=== PATIENT | female | born 1940 | race Caucasian/White ===

== ENCOUNTER → 2017-10-31 | Outpatient (CLI) | payer MEDICARE ==
[~2017-10-31] MED LIST: FLEC50TA3 PO; LEVO112T7 PO
== END | disposition home or self-care (01) ==
LOC: RAH 12:55
PROVIDERS: ATTEND Orthopaedic Surgery
DX: M75.101 Unspecified rotator cuff tear or rupture of right shoulder, not specified as traumatic (principal); M75.41 Impingement syndrome of right shoulder
CPT/HCPCS: 73221

== ENCOUNTER 2017-12-29 08:03 | Observation (INO) | payer MEDICARE ==
[2017-12-26 09:36] VITALS: BP 124/75
[2017-12-26 09:45] LABS: BASOPHILS % (AUTO) 1.2 % (0.0-5.0); EOSINOPHILS % (AUTO) 0.8 % (0.0-8.0); HEMATOCRIT 42.4 % (36-48); MEAN CORPUSCULAR HEMOGLOBIN 33.5 pg (27.0-33.0); MEAN CORPUSCULAR HGB CONC 34.3 g/dL (32.0-36.0); MEAN CORPUSCULAR VOLUME 97.7 fL (79-99); MONOCYTES % (AUTO) 12.2 % (3.0-13.0); NEUTROPHILS % (AUTO) 52.8 % (40.0-77.0); PLATELET COUNT (AUTO) 342 K/uL (130-400); RED BLOOD CELL COUNT(AUTO) 4.34 MIL/uL (4.00-5.50); RED CELL DISTRIBUTION WIDTH 13.7 % (11.0-15.5); WHITE BLOOD COUNT (AUTO) 4.1 K/uL (4.8-10.8)
[2017-12-26 09:56] LABS: CREATININE 0.6 mg/dL (0.5-1.5); POTASSIUM 4.5 mmol/L (3.5-5.1)
[2017-12-26 10:05] LABS: INR 1.03 (0.85-1.15); PARTIAL THROMBOPLASTIN TIME 28.1 SEC (26.3-35.5); PROTHROMBIN TIME 10.8 SEC (9.6-11.6)
[~2017-12-29] VITALS: Ht 167.6 cm; Wt 71.3 kg
[2017-12-29] VITALS (11 sets, daily range): BP systolic 113–138; BP diastolic 61–74
[2017-12-29] MEDS ORDERED: SODIUM CHLORIDE 0.9% 1000ML 1,000 ML IV ONE (09:03)
[2017-12-29] MEDS ORDERED: HEPARIN SODIUM 1000UNIT/ML 10ML VIAL ONE (09:21)
[2017-12-29] MEDS ORDERED: LIDOCAINE HCL 2% 20ML ONE (09:21)
[2017-12-29] MEDS ORDERED: ISOPROTERENOL HCL 0.2 MG/ML AMP/VIAL/BAG ONE (09:22)
[2017-12-29] MEDS ORDERED: FENTANYL CITRATE PF 50 MCG/1 ML 2ML VIAL ONE (11:07)
[2017-12-29] MEDS ORDERED: MEPERIDINE-PF 50 MG/ML SYG ONE (11:12)
[2017-12-29] MEDS ORDERED: MEPERIDINE-PF 25 MG/ML SYG ONE (11:57)
[2017-12-29] MEDS ORDERED: ASPIRIN 81 MG EC TAB PO SCH (14:17)
[2017-12-29] MEDS ORDERED: ACETAMINOPHEN 325 MG TAB PO PRN (22:45)
[2017-12-30 04:01] LABS: BASOPHILS % (AUTO) 0.7 % (0.0-5.0); EOSINOPHILS % (AUTO) 1.1 % (0.0-8.0); HEMATOCRIT 39.1 % (36-48); LYMPHOCYTES % (AUTO) 40.6 % (21.0-51.0); MEAN CORPUSCULAR HEMOGLOBIN 33.9 pg (27.0-33.0); MEAN CORPUSCULAR VOLUME 96.9 fL (79-99); MONOCYTES % (AUTO) 11.1 % (3.0-13.0); NEUTROPHILS % (AUTO) 46.5 % (40.0-77.0); PLATELET COUNT (AUTO) 303 K/uL (130-400); RED BLOOD CELL COUNT(AUTO) 4.04 MIL/uL (4.00-5.50); RED CELL DISTRIBUTION WIDTH 13.5 % (11.0-15.5)
[2017-12-30 04:08] LABS: CREATININE 0.6 mg/dL (0.5-1.5); POTASSIUM 4.8 mmol/L (3.5-5.1)
[2017-12-30 04:41] VITALS: BP 123/63
[2017-12-30] MEDS ORDERED: LEVOTHYROXINE 112 MCG TABLET PO SCH (06:30)
[2017-12-30 06:37] VITALS: BP 123/63
[2017-12-30] MEDS ORDERED: REGADENOSON 0.4 MG/5 ML PF SYG IVP SCH (07:15)
[2017-12-30 07:21] VITALS: BP 116/73
[2017-12-30] MEDS ORDERED: ASPIRIN 81 MG EC TAB PO SCH (09:00)
[2017-12-30] MEDS ORDERED: MAG HYDROX/AL HYDROX/SIMETH ES 30 ML SUSP UDCUP PO PRN (09:15)
[2017-12-30] MEDS ORDERED: ACETAMINOPHEN 325 MG TAB PO PRN ×2 (09:15)
[2017-12-30] MEDS ORDERED: LACTULOSE 20 GM/30 ML UDCUP PO PRN (09:15)
[2017-12-30] MEDS ORDERED: NITROGLYCERIN 0.4 MG SL TAB SL PRN (09:15)
[2017-12-30] MEDS ORDERED: GUAIFENESIN-DM 200/20 MG 10 ML PO PRN (09:15)
[2017-12-30] MEDS ORDERED: TRAMADOL HCL 50 MG TABLET PO PRN (09:15)
[2017-12-30] MEDS ORDERED: ONDANSETRON HCL 4 MG/2 ML VIAL IV PRN (09:15)
[2017-12-30 11:28] VITALS: BP 137/76
[2017-12-30 16:37] VITALS: BP 112/74
== END 2017-12-30 18:52 | disposition home or self-care (01) ==
LOC: DAH 08:03 → 2AH 08:04 → DAH 08:04
PROVIDERS: ADMIT Internal Medicine; ATTEND Internal Medicine
DX: I47.1 Supraventricular tachycardia (principal); E03.9 Hypothyroidism, unspecified; G89.29 Other chronic pain; Z88.5 Allergy status to narcotic agent; Z88.1 Allergy status to other antibiotic agents; Z98.51 Tubal ligation status; Z96.649 Presence of unspecified artificial hip joint; Z79.899 Other long term (current) drug therapy
CPT/HCPCS: 36415 ×2; 78452; 80048 ×2; 82948 ×2; 85025 ×2; 85610; 85730; 93005 ×2; 93017; 93613; 93621; 93623; 93653; A4649; A9500 ×2; C1730 ×4; C1732; C1894 ×5; G0378 ×35; J1644; J2175; J2785; J3010; J3490 ×2; J7030; 96374; 99152; 99153

== ENCOUNTER → 2023-10-26 | Outpatient (CLI) | payer MEDICARE ==
[~2023-10-26] MED LIST changes: -FLEC50TA3 PO
== END | disposition home or self-care (01) ==
LOC: RAH 10:00
PROVIDERS: ATTEND Internal Medicine Cardiovascular Disease
DX: I05.9 Rheumatic mitral valve disease, unspecified (principal); R94.31 Abnormal electrocardiogram [ECG] [EKG]; M19.90 Unspecified osteoarthritis, unspecified site
CPT/HCPCS: 93306

== ENCOUNTER → 2023-10-31 | Outpatient (CLI) | payer MEDICARE ==
[2023-10-31] MEDS: REGADENOSON 0.4 MG/5 ML PF SYG IVP SCH (11:02)
== END | disposition home or self-care (01) ==
LOC: RAH 08:29
PROVIDERS: ATTEND Internal Medicine Cardiovascular Disease
DX: R94.31 Abnormal electrocardiogram [ECG] [EKG] (principal)
CPT/HCPCS: 78452; 96374; 93017; J2785; A9500 ×2

== ENCOUNTER 2023-12-18 05:05 | Observation (INO) | payer MEDICARE ==
[2023-12-13 11:29] LABS: BASOPHILS # (AUTO) 0.05 K/uL (0.00-0.20); BASOPHILS % (AUTO) 1.6 % (0.0-5.0); EOSINOPHILS # (AUTO) 0.11 K/uL (0.00-0.70); EOSINOPHILS % (AUTO) 3.5 % (0.0-8.0); HEMATOCRIT 40.5 % (36-48); IMMATURE GRANULOCYTE ABSOLUTE 0.01 K/uL (0-1); LYMPHOCYTES # (AUTO) 1.2 K/uL (1.0-4.8); LYMPHOCYTES % (AUTO) 38.9 % (21.0-51.0); MEAN CORPUSCULAR HEMOGLOBIN 31.7 pg (27.0-33.0); MEAN CORPUSCULAR HGB CONC 32.8 g/dL (32.0-36.0); MEAN CORPUSCULAR VOLUME 96.4 fL (79-99); MONOCYTES # (AUTO) 0.4 K/uL (0.1-1.0); MONOCYTES % (AUTO) 11.4 % (3.0-13.0); NEUTROPHILS # (AUTO) 1.4 K/uL (1.8-7.7); NEUTROPHILS % (AUTO) 44.3 % (40.0-77.0); PLATELET COUNT (AUTO) 261 K/uL (130-400); RED CELL DISTRIBUTION WIDTH 13.5 % (11.0-15.5); WHITE BLOOD COUNT (AUTO) 3.2 K/uL (4.8-10.8)
[2023-12-13 11:38] LABS: CREATININE 0.6 mg/dL (0.5-1.0); POTASSIUM 4.6 mmol/L (3.5-5.1)
[2023-12-13 11:41] LABS: INR <= 0.93 (0.85-1.15)
[2023-12-13 12:31] VITALS: BP 137/82; PULSE 71; RESP 18
[2023-12-18] VITALS (27 sets, daily range): BP systolic 134–168; BP diastolic 64–90; PULSE 57–82; RESP 14–20; O2SAT 98–99
[~2023-12-18] VITALS: Ht 167.6 cm; Wt 72.1 kg
[~2023-12-18 05:05] MED LIST changes: +ACET-2743 PO; +FLUT15.845 NASAL; -LEVO112T7 PO; +LEVO5TAB13 PO; +LEVO75TA10 PO; +LIOT5TAB11 PO; +MECL-302 PO; +METH-812 PO; +[UNRECOGNIZED DRUG - OTHER] PO; +probiotic PO
[2023-12-18] MEDS: CEFAZOLIN SODIUM 2 GM VIAL ONE (05:29)
[2023-12-18] MEDS: LACTATED RINGERS 1000ML 1,000 ML IV ONE (05:30)
[2023-12-18] MEDS ORDERED: FENTANYL CITRATE PF 50 MCG/1 ML 2ML VIAL ONE (07:05)
[2023-12-18] MEDS ORDERED: PROPOFOL 1000 MG/100 ML 100 ML IV ONE (07:07)
[2023-12-18] MEDS ORDERED: MORPHINE PF 100MG/10ML AMP IV ONE (07:07)
[2023-12-18] MEDS: ACETAMINOPHEN 1,000 MG/100 ML VIAL IV ONE (07:08)
[2023-12-18] MEDS: FAMOTIDINE 20MG VIAL IV ONE (07:09)
[2023-12-18] MEDS ORDERED: ONDANSETRON 4MG INJ ONE (07:37)
[2023-12-18] MEDS ORDERED: DEXAMETHASONE SOD PHOSPHATE 10MG/ML 1ML VIAL ONE (07:37)
[2023-12-18] MEDS ORDERED: ROCURONIUM BROMIDE 10MG/1ML 5ML VL ONE (07:41)
[2023-12-18] MEDS ORDERED: LIDOCAINE PF 100MG/5ML (2%) SYRINGE 5ML ONE (07:41)
[2023-12-18] MEDS: TRANEXAMIC ACID 1000MG/10ML ONE ×2 (07:45→09:05)
[2023-12-18] MEDS: GENTAMICIN SULFATE 80 MG/2 ML VIAL ONE (08:07)
[2023-12-18] MEDS: CEFAZOLIN SODIUM 1 GM VIAL ONE (08:07)
[2023-12-18] MEDS: 0.9%NACL 48.45 ML, ROPIVACAINE 0.5% 49.25ML, EPINEPH 0.5MG KETOROLAC 30MG,CLONIDINE 80MCG IV PRN (08:07)
[2023-12-18] MEDS ORDERED: NEOSTIGMINE METHYLSULFATE 1MG/ML IV ONE (08:37)
[2023-12-18] MEDS ORDERED: GLYCOPYRROLATE 0.2 MG/ML 5 ML VIAL ONE (08:37)
[2023-12-18] MEDS: MEPERIDINE-PF 25 MG/ML SYG ONE (10:21)
[2023-12-18] MEDS ORDERED: BENZOCAINE/MENTH/CETYLPYRD CL 1 EACH LOZENGE MM PRN (11:30)
[2023-12-18] MEDS ORDERED: DIPHENOXYLATE HCL/ATROPINE 2.5/0.025 MG TAB PO PRN (11:30)
[2023-12-18] MEDS ORDERED: LACTULOSE 20 GM/30 ML UDCUP PO PRN (11:30)
[2023-12-18] MEDS ORDERED: ACETAMINOPHEN 325 MG TAB PO SCH (11:30)
[2023-12-18] MEDS ORDERED: HYDROMORPH /0.9% NACL/PF PCA 50 ML IV PRN (11:30)
[2023-12-18] MEDS ORDERED: ACETAMINOPHEN 325 MG TAB PO PRN (11:30)
[2023-12-18] MEDS ORDERED: DIPHENHYDRAMINE HCL 25 MG CAPSULE PO SCH (11:30)
[2023-12-18] MEDS ORDERED: CEFAZOLIN SODIUM 2 GM VIAL IVPB SCH (11:30)
[2023-12-18] MEDS ORDERED: DIPHENHYDRAMINE HCL 25 MG CAPSULE PO PRN (11:30)
[2023-12-18] MEDS: 0.9%NACL 1000ML 1,000 ML IV SCH (11:45)
[2023-12-18] MEDS: ONDANSETRON 4MG INJ IVP PRN (12:05)
[2023-12-18] MEDS ORDERED: MECLIZINE HCL 25 MG TABLET PO PRN (12:30)
[2023-12-18 14:36] LABS: ALBUMIN 3.8 g/dL (3.5-5.0); BILIRUBIN,DIRECT 0.1 mg/dL (0.0-0.3); BILIRUBIN,TOTAL 0.3 mg/dL (0.2-1.0); TOTAL PROTEIN, SERUM 6.8 g/dL (6.0-8.3)
[2023-12-18] MEDS: TRAMADOL HCL 50 MG TABLET PO PRN (14:57)
[2023-12-18] MEDS: MAG/ALUM/SIMETH 30 ML UDCUP PO PRN (15:00)
[2023-12-18] MEDS: CEFAZOLIN SODIUM 2 GM VIAL IVPB SCH (17:07)
[2023-12-18] MEDS: FLUTICASONE PROPIONATE 50MCG/SPRAY 16 GM BOTTLE EN SCH (20:37)
[2023-12-19 00:14] VITALS: BP 120/61; PULSE 66; RESP 17
[2023-12-19 04:07] LABS: BASOPHILS # (AUTO) 0.01 K/uL (0.00-0.20); BASOPHILS % (AUTO) 0.1 % (0.0-5.0); EOSINOPHILS # (AUTO) 0.01 K/uL (0.00-0.70); EOSINOPHILS % (AUTO) 0.1 % (0.0-8.0); HEMATOCRIT 32.8 % (36-48); IMMATURE GRANULOCYTE ABSOLUTE 0.05 K/uL (0-1); LYMPHOCYTES # (AUTO) 1.1 K/uL (1.0-4.8); LYMPHOCYTES % (AUTO) 10.3 % (21.0-51.0); MEAN CORPUSCULAR HEMOGLOBIN 32.4 pg (27.0-33.0); MEAN CORPUSCULAR HGB CONC 34.1 g/dL (32.0-36.0); MEAN CORPUSCULAR VOLUME 94.8 fL (79-99); MONOCYTES # (AUTO) 0.8 K/uL (0.1-1.0); MONOCYTES % (AUTO) 8.1 % (3.0-13.0); NEUTROPHILS # (AUTO) 8.4 K/uL (1.8-7.7); NEUTROPHILS % (AUTO) 80.9 % (40.0-77.0); PLATELET COUNT (AUTO) 211 K/uL (130-400); RED BLOOD CELL COUNT(AUTO) 3.46 MIL/uL (4.00-5.50); RED CELL DISTRIBUTION WIDTH 13.3 % (11.0-15.5); WHITE BLOOD COUNT (AUTO) 10.4 K/uL (4.8-10.8)
[2023-12-19 04:08] VITALS: BP 111/57; PULSE 61; RESP 17
[2023-12-19 04:20] LABS: CREATININE 0.7 mg/dL (0.5-1.0); POTASSIUM 3.8 mmol/L (3.5-5.1)
[2023-12-19 04:27] LABS: HEMOGLOBIN A1C 5.9 % (4.0-6.0)
[2023-12-19] MEDS: LEVOTHYROXINE 75 MCG TABLET PO SCH (05:54)
[2023-12-19] MEDS: (Liothyronine Sodium 5 MCG) PO SCH (05:58)
[2023-12-19 08:00] VITALS: BP 123/53; PULSE 68; RESP 16; O2SAT 99
[2023-12-19] MEDS: RIVAROXABAN 10 MG TABLET PO SCH (08:35)
[2023-12-19] MEDS: FLUTICASONE PROPIONATE 50MCG/SPRAY 16 GM BOTTLE EN SCH (08:35)
[2023-12-19 12:00] VITALS: BP 122/66; PULSE 73; RESP 16
[2023-12-19 16:00] VITALS: BP 117/58; PULSE 75; RESP 16
== END 2023-12-19 17:20 ==
LOC: DAH 05:05 → DAHIP 05:06 → 4BH 11:10
PROVIDERS: ADMIT Orthopaedic Surgery; ATTEND Orthopaedic Surgery
DX: M17.12 Unilateral primary osteoarthritis, left knee (principal); I10 Essential (primary) hypertension; E78.5 Hyperlipidemia, unspecified; E03.9 Hypothyroidism, unspecified; I48.91 Unspecified atrial fibrillation; F41.9 Anxiety disorder, unspecified; Z79.01 Long term (current) use of anticoagulants; Z88.9 Allergy status to unspecified drugs, medicaments and biological substances; Z86.2 Personal history of diseases of the blood and blood-forming organs and certain disorders involving the immune mechanism
CPT/HCPCS: 80048 ×2; 85025 ×2; 85610; 85730; 36415 ×3; 71045; 93005; 87641; 27447; 96376; 96365; 96375; 80076; 82948; 97161; 97012; 97530 ×6; 96366; 83036; 97116 ×2; A6260; G0378 ×25; A4510; A4663; J7120 ×2; A4215 ×2; A4452; A4649 ×4; J3490 ×5; J3010; J0690 ×4; J1100; J2001; J1580; J2704; J2274; J2405 ×3; J2710; J2175; A6223; A4930 ×2; C1763 ×2; C1776; A5120; A4223; A4222; A4221; A6450; J7030